=== PATIENT | male | born 1960 | race Caucasian/White ===

== ENCOUNTER 2024-12-31 06:11 | Day surgery (SDC) | payer OTHER, SELFPAY ==
[2024-12-31] VITALS (10 sets, daily range): BP systolic 135–165; BP diastolic 56–85; BMI 29.3
[2024-12-31 12:58] LABS: Glucose - Point of Care 268 mg/dl (70-99)
[2024-12-31] MEDS: NORMOSOL-R/PLASMALYTE-A 1000 IV (13:26)
[2024-12-31] MEDS: NOVOLOG vial 3 UNITS SC (13:39)
[2024-12-31 15:45] LABS: Glucose - Point of Care 191 mg/dl (70-99)
[2024-12-31 18:22] LABS: Glucose - Point of Care 182 mg/dl (70-99)
--- NOTE | 2024-12-31 18:40 | OR.RPT ---
Operative Report
Operative Report
Anesthesia Type:
General With block
Operative Indications:
Left patella tendon rupture
Operative Findings :
Same
Complications:
None
Implants:
#5 Ethibond suture x 2
Procedure and Technique:
Left open patella tendon repair
INDICATIONS FOR PROCEDURE:
The patient is an active 64-year-old male who sustained a work-related injury where he fell and felt immediate pain in his left knee. He was seen emergency department where there is suspicion for patella tendon rupture. He was seen in my office we
discussed treatment options. He had a similar injury to his contralateral extremity several years ago and did well with surgery. After discussion we mutually agreed to proceed with open left patella tendon repair via transosseous tunnels. We
discussed risks benefits and alternatives to surgery. We discussed the usual and expected perioperative and postoperative course. After discussion written informed consent was obtained.
OPERATIVE PROCEDURE:
Patient was seen identified in the preoperative holding area. Operative extremity was marked. All questions were addressed and answered. He was taken to the operating room where general anesthesia was administered. Peripheral block was
performed. Nonsterile tourniquet was applied. Operative extremity was prepped and draped in the normal sterile fashion. Timeout was performed again identifying the correct operative extremity. Preoperative antibiotics were addressed. Standard
anterior approach to the knee was taken. Sharp dissection was carried through skin subcutaneous tissues deep fascial layer. Hematoma was identified and evacuated. At that time obvious patella tendon rupture was visualized at the distal pole of
the patella. Soft tissue was removed from the distal pole the patella with a rongeur and curette. Two #5 Ethibond sutures were then passed through the remnant patella tendon in a Krak�w fashion. 3 drill holes were then made longitudinally through
the patella utilizing a 2.5 mm drill bit. Sutures were then passed through transosseous tunnels and tied over a bony bridge in complete extension. #1 Vicryl suture was then used to close the medial and lateral retinacular tissue in an interrupted
fashion utilizing avfhdj-op-lmaen stitch. I was able to flex the knee to about 60 degrees without any gapping at the repair site. Satisfied with extent of surgery tourniquet was released and hemostasis was achieved with electrocautery. Wound was
copiously irrigated normal saline solution. Wound was closed in a layered fashion utilizing 2-0 Vicryl for subcutaneous layer and akira for skin. Sterile dressing was applied consisting of Xeroform, 4 x 4 gauze ABD Webril Chad bandage. Patient
was placed in a hinged knee brace locked in extension. Anesthesia was averse and patient was taken the PACU in stable condition. Postoperative plans include weightbearing to patient's tolerance in hinged knee brace locked in extension. He will
resume his dual antiplatelet therapy for DVT prophylaxis. Plan to see patient back in 2 weeks.
Disposition:
PACU stable condition
[2024-12-31] MEDS: DILAUDID 0.5 MG IV (18:41)
[2024-12-31] MEDS: DEMEROL 12.5 MG IV ×2 (18:46→19:08)
[2024-12-31] MEDS: TORADOL 30 MG IV (19:14)
[2024-12-31] MEDS: DILAUDID 0.25 MG IV ×2 (19:27→20:08)
[2024-12-31] MEDS: ROXICODONE 10 MG PO (20:30)
== END 2024-12-31 20:30 | disposition home or self-care (01) ==
LOC: SDS 06:11
PROVIDERS: ATTENDING PHYSICIAN Orthopaedic Surgery
DX: S86.812A Strain of other muscle(s) and tendon(s) at lower leg level, left leg, initial encounter (principal); W19.XXXA Unspecified fall, initial encounter
CPT/HCPCS: 27380; C1713; 82962